=== PATIENT | female | born 1995 | race African-American/Black ===

== ENCOUNTER 2019-04-28 16:01 | Emergency (ER) | payer OTHER ==
[2019-04-28 16:18] VITALS: BP 111/70
--- NOTE | 2019-04-28 17:25 | UC ---
Lower Extremity/Ankle HPI - HPI Summary HPI Summary: 24-year-old female presents with complaints of posterior right ankle pain after sustaining a hyperflexion injury while playing soccer 6 days ago. States she heard a "pop" at the time of the injury. She was able to walk and bear weight immediately following the injury and has continued to do so. States she had some calf cramping for a day or 2 after the injury that has since resolved. Reports she has continued to have some mild swelling in the posterior ankle although has improved with ice and elevation. States pain is also improving and very mild at present. She has been using an Daquan wrap and walking boot with improvement in symptoms. Denies any numbness or tingling. - History of Current Complaint Chief Complaint: UCLowerExtremity Stated Complaint: LEG INJURY Time Seen by Provider: 04/28/19 17:11 Hx Obtained From: Patient Hx Last Menstrual Period: 03/26/20 Pain Intensity: 5 - Allergies/Home Medications Allergies/Adverse Reactions: Allergies Allergy/AdvReac Type Severity Reaction Status Date / Time bee venom protein (honey bee) Allergy Swelling Verified 04/28/19 16:14 Home Medications: Home Medications Ibuprofen 600 mg PO ONCE PRN 04/28/19 [History Confirmed 04/28/19] Tiffani Iud Hormonal Release 1 unit INTRAUTERI ONCE 04/28/19 [History Confirmed ] PMH/Surg Hx/FS Hx/Imm Hx Previously Healthy: Yes - Denies significant PMH - Surgical History Surgical History: Yes Surgery Procedure, Year, and Place: wisdom teeth - Family History Known Family History: Positive: Non-Contributory - Social History Occupation: Student Lives: Dormitory/Roommates Alcohol Use: Occasionally Substance Use Type: Marijuana Substance Use Comment - Amount & Last Used: hx of not regularly Smoking Status (MU): Never Smoked Tobacco Review of Systems All Other Systems Reviewed And Are Negative: Yes Constitutional: Positive: Negative Skin: Negative: Bruising Respiratory: Positive: Negative Cardiovascular: Positive: Negative Gastrointestinal: Positive: Negative Genitourinary: Positive: Negative Motor: Negative: Weakness Neurovascular: Negative: Decreased Sensation Musculoskeletal: Positive: Other: - See HPI. Negative: Decreased ROM Neurological: Positive: Negative Is Patient Immunocompromised?: No Physical Exam - Summary Physical Exam Summary: GENERAL APPEARANCE: Well developed, well nourished, alert and cooperative, and appears to be in no acute distress. CARDIAC: Normal S1 and S2. No S3, S4 or murmurs. Rhythm is regular. There is no peripheral edema, cyanosis or pallor. Extremities are warm and well perfused. Capillary refill is less than 2 seconds. Peripheral pulses intact. LUNGS: Clear to auscultation without rales, rhonchi, wheezing or diminished breath sounds. ABDOMEN: Positive bowel sounds. Soft, nondistended, nontender. No guarding or rebound. No masses or hepatosplenomegally. MUSKULOSKELETAL: ROM intact to all extremities. No joint erythema or tenderness. Normal muscular development. Normal gait. EXTREMITIES: Mild tenderness to the posterior right ankle along the achilles tendon with mild edema. No gross deformity or ecchymosis noted. Full ROM to the ankle. Circulation and sensation intact. SKIN: Skin normal color, texture and turgor with no lesions or eruptions. Triage Information Reviewed: Yes Vital Signs: Initial Vital Signs Temp 99.3 F 04/28/19 16:08 Pulse 73 04/28/19 16:08 Resp 18 04/28/19 16:08 BP 111/70 04/28/19 16:08 Pulse Ox 100 04/28/19 16:08 Vital Signs Reviewed: Yes Lower Extremity Course/Dx - Course Course Of Treatment: 24-year-old female presents with complaints of posterior right ankle pain after sustaining a hyperflexion injury while playing soccer 6 days ago. States she heard a "pop" at the time of the injury. She was able to walk and bear weight immediately following the injury and has continued to do so. States she had some calf cramping for a day or 2 after the injury that has since resolved. Reports she has continued to have some mild swelling in the posterior ankle although has improved with ice and elevation. States pain is also improving and very mild at present. She has been using an Daquan wrap and walking boot with improvement in symptoms. Denies any numbness or tingling. Afebrile. VSS. On exam patient had mild tenderness to the posterior right ankle along the achilles tendon with mild edema. No gross deformity or ecchymosis was noted. She had Full ROM to the ankle. Circulation and sensation intact. We discussed that her history and exam are consistent with an achilles tendon injury and that x-rays would have limited benefit for assessing this injury therefore were deferred at this time. Recommending conservative treatment including continued use of [id number] analgesics and RICE. I encouraged the patient to continue to use her Daquan wrap and walking boot until she is pain-free. She is to follow-up with sports medicine in 5 days days for further evaluation especially if symptoms are not improving. Anticipatory guidance and warning symptoms were reviewed with the patient. Verbalizes understanding and agrees with plan of care. - Differential Dx/Diagnosis Differential Diagnosis/HQI/PQRI: Contusion, Dislocation, Fracture (Closed), Sprain, Strain, Tendonitis Provider Diagnosis: Injury of right Achilles tendon Discharge ED - Sign-Out/Discharge Documenting (check all that apply): Patient Departure All imaging exams completed and their final reports reviewed: No Studies - Discharge Plan Condition: Stable Disposition: HOME Patient Education Materials: Achilles Tendinitis (ED) Referrals: No Primary Care Phys,NOPCP [Primary Care Provider] - Additional Instructions: Your history and exam are consistent with an achilles tendon injury. Rest the foot as much as possible. You may continue to walk and bear weight but should avoid running, jumping, or strenuous activity while having pain. Use your walking boot until you have been evaluated by sports medicine. You may remove to shower and sleep but should wear at all other times. Use an DAQUAN wrap or compression sleeve to help manage any swelling. Apply ice to the affected area for 15-20 minutes at least 4 times a day to help with the pain and swelling. Elevate the right to help reduce swelling. Take acetaminophen (Tylenol) or ibuprofen (Advil, Motrin) according to directions as needed for pain. Follow up with medicine in 5-7 days for further evaluation of your injury. Seek immediate medical attention if you have severe pain not managed with pain medication, you are unable to walk or bear any weight, develop numbness or tingling in the foot or toes, or have any worsening of symptoms. - Billing Disposition and Condition Condition: STABLE Disposition: Home - Attestation Statements Provider Attestation: This patient was not seen by me. I was available for consult. Chart reviewed. DAVID
== END 2019-04-28 17:33 | disposition home or self-care (01) ==
LOC: UCEAST 16:01
DX: S86.001A Unspecified injury of right Achilles tendon, initial encounter (principal); Z91.030 Bee allergy status; X50.0XXA Overexertion from strenuous movement or load, initial encounter; Y93.66 Activity, soccer; Y92.9 Unspecified place or not applicable
CPT/HCPCS: 99201; G0463

== ENCOUNTER 2019-06-15 07:01 | Day surgery (SDC) | payer OTHER ==
[~2019-06-15 07:01] MED LIST: Buffered Lidocaine 1% SYRIN* 1 ML/SYRINGE INTRADERM ONE; Lactated Ringers 1000 ML Bag* 1,000 ML IV SCH
[2019-06-15] MEDS ORDERED: HYDROmorphone INJ1* 1 MG/ML SYRINGE IV PRN (07:09)
[2019-06-15] MEDS ORDERED: Naloxone* 0.4 MG/ML 1 ML VIAL IV PRN (07:09)
[2019-06-15] MEDS ORDERED: ceFAZolin 2 GM PREMIX in ORs 2 GM/50 ML BAG ONE (07:16)
[2019-06-15] MEDS ORDERED: Midazolam* 1 MG/ML 2 ML VIAL (2 MG) ONE (07:55)
[2019-06-15] MEDS ORDERED: fentaNYL* 50 MCG/ML 2 ML VIAL (100 MCG VIAL) ONE (07:55)
[2019-06-15] MEDS ORDERED: Rocuronium* 10 MG/ML VIAL ONE (08:00)
[2019-06-15] MEDS ORDERED: Dexamethasone IV* 4 MG/ML 1 ML (4 MG) ONE (09:45)
[2019-06-15] MEDS ORDERED: Ondansetron INJ* 2 MG/ML VIAL ONE (09:45)
[2019-06-15] MEDS ORDERED: Propofol* 10 MG/ML 20 ML BTL ONE (09:45)
[2019-06-15] MEDS ORDERED: Lidocaine 2% PF * 5 ML VIAL ONE (09:45)
[2019-06-15] MEDS ORDERED: ROPIVACAINE 5 MG/ML 30 ML BTL (0.5%) ONE (09:45)
[2019-06-15] MEDS ORDERED: Haloperidol INJ IV/IM* 5 MG/ML AMP IV SLOW PU ONE (10:28)
[2019-06-15] MEDS ORDERED: Acetaminophen TAB* 325 MG PO ONE (10:28)
[2019-06-15] MEDS ORDERED: Ibuprofen TAB* 400 MG PO ONE (10:28)
[2019-06-15] MEDS ORDERED: Ibuprofen TAB* 400 MG ONE (10:30)
[2019-06-15] MEDS ORDERED: Acetaminophen ADULT LIQ* 650 MG/20.3 ML UDC ONE (10:30)
[2019-06-15] MEDS ORDERED: Acetaminophen TAB* 325 MG PO PRN (10:31)
[2019-06-15] MEDS ORDERED: Ibuprofen TAB* 400 MG PO PRN (10:31)
[2019-06-15 12:23] VITALS: BP 121/76
--- NOTE | 2019-06-16 05:02 | OP ---
DATE OF OPERATION: 06/15/19 - [facility] DATE OF : 89 SURGEON: Rolf Lange MD DRAWER FITTER: Rodri De León PA-C PRE-OP DIAGNOSIS: Right Achilles tendon tear. POST-OP DIAGNOSIS: Right Achilles tendon tear. OPERATIVE PROCEDURE: Repair right Achilles. DESCRIPTION OF PROCEDURE: The patient was taken to the operating room where the prone positioning was used with a thigh tourniquet. We made a longitudinal incision along the medial border of the Achilles. The chair was a bit higher than normal for a tendo-Achilles repair, probably 5 to 6 cm above the insertion. We wove two sutures of 0 PDS above and below the tear in a basket- weave figuration that, when tied above and below, would reapproximate the ends of the tendon under some compression. We then irrigated thoroughly the bed of the tendon closing the subcu and peritenon in 1 layer with 2-0 Monocryl sutures and migue for the skin and a compression dressing plaster splint applied. [id number]/[facility] #: [id number] [facility]
== END 2019-06-15 12:20 | disposition home or self-care (01) ==
LOC: OR 07:01
PROVIDERS: ATTEND Orthopaedic Surgery
DX: S86.021D Laceration of right Achilles tendon, subsequent encounter (principal); X50.1XXD Overexertion from prolonged static or awkward postures, subsequent encounter; M25.571 Pain in right ankle and joints of right foot; F41.9 Anxiety disorder, unspecified
CPT/HCPCS: 81025; A9270-GY; J0690; J1100; J1630; J2250; J2405; J2704; J2795; J3010